=== PATIENT | male | born 1960 | race Two or more races ===

== ENCOUNTER 2016-11-15 23:49 | Emergency (ER) | payer SELFPAY ==
[~2016-11-15] VITALS: Ht 172.7 cm; Wt 68.0 kg
[~2016-11-15 23:49] MED LIST: ACETAMINOPHEN PO; DICLOFENAC PO; HYDROCODON-ACE1 EAC7 PO; LEVOXYL150 MCG PO; MEDI-MECLIZINE25 M1 PO; NICOTINE TRANSD21 MG EXT; PHENERGAN25 M1 PO; PREDNISONE PO; SYNTHROID PO; SYNTHROID0.15 MG PO; SYNTHROID175 MCG PO; TYLENOL #3 PO; ZITHROMAX PO
== END 2016-11-16 01:05 | disposition home or self-care (01) ==
LOC: SED 23:49
DX: Z76.0 Encounter for issue of repeat prescription (principal); E03.9 Hypothyroidism, unspecified; F17.200 Nicotine dependence, unspecified, uncomplicated; Z79.899 Other long term (current) drug therapy
CPT/HCPCS: 99281